=== PATIENT | male | born 1965 | race Caucasian/White ===

== ENCOUNTER 2017-03-25 18:56 | Emergency (ER) | payer OTHER ==
[~2017-03-25] VITALS: Ht 172.7 cm; Wt 84.5 kg
[~2017-03-25 18:56] MED LIST: DICY10CA60 PO; HYDR-3498 PO; ONDA4TAB35 PO; PHEN-538 PO
[2017-03-25 19:15] VITALS: Ht 172.7 cm; Wt 84.5 kg
[2017-03-25] MEDS ORDERED: LORAZEPAM 0.5 MG TAB PO ONE (20:00)
--- NOTE | 2017-03-25 20:02 | ERD ---
ER Documentation Chief Complaint Date/Time DATE: 03/25/17 TIME: 20:00 Chief Complaint Inability to sleep for 3 days and felt Heaviness on chest while in bed HPI 51-year-old man brought in by for complaints of anxiety 3 days, he has had some insomnia and complaints of pressure-like chest pain constant 3 days. Patient states every time he feels severely anxious he develops this type of "chest pressure". The chest pressure is nonexertional nonradiating and has been constant for 3 days. He denies drugs, no shortness of breath, no paresis or paresthesias, no vomiting or diarrhea. Patient denies suicidal homicidal ideation, and states his symptoms occur about twice per year. ROS All systems reviewed and are negative except as per history of present illness. Medications Home Meds Discontinued Reported Medications [none] Unknown Strength No Conflict Check 04/27/16 Discontinued Scripts Ondansetron Hcl* (Zofran* ODT) 4 mg -ODT Tab.disper, 4 MG PO Q8 Y for NAUSEA AND /OR VOMITING, #30 TAB Prov:ALEJANDRO LONGORIA PRIMARY CARE NURSE 04/27/16 Dicyclomine Hcl* (Bentyl*) 10 Mg Capsule, 10 MG PO QID, #20 CAP Prov:ALEJANDRO LONGORIA PRIMARY CARE NURSE 04/27/16 Phenazopyridine Hcl* (Pyridium*) 200 Mg Tab, 200 MG PO TID Y for URINARY PAIN, # 6 TAB Prov:ALEJANDRO LONGORIA PRIMARY CARE NURSE 04/27/16 Hydrocodone Bit-Acetaminophen* ([place]*) 5-325 Mg Tab, 1 TAB PO Q6 Y for PAIN, # 20 TAB Prov:ALEJANDRO LONGORIA PRIMARY CARE NURSE 04/27/16 Allergies Allergies: Coded Allergies: No Known Allergy (Unverified , 11/05/12) PMhx/Soc Anxiety History of Surgery: Yes (LT ABDOMINAL CANCERDOUS TUMOR REMOVED 3 YEARS AGO ) Anesthesia Reaction: No Hx Neurological Disorder: No Hx Respiratory Disorders: No Hx Cardiac Disorders: No Hx Psychiatric Problems: No Hx Miscellaneous Medical Probl: No Hx Alcohol Use: Yes (OCCASIONAL) Hx Substance Use: No Hx Tobacco Use: No FmHx Family History: No diabetes Physical Exam Vitals Vital Signs Date Time Temp Pulse Resp B/P Pulse Ox O2 Delivery O2 Flow Rate FiO2 03/25/17 20:53 61 18 133/75 96 Room Air 03/25/17 19:15 98.2 69 20 135/76 97 Physical Exam GENERAL: Well-developed, anxious HEENT: Moist mucous membranes, pink conjunctiva, no cervical spine tenderness or step-off deformities, no goiter, no jaundice or icterus, extraocular movements intact without pain. No submandibular induration, and no pharyngeal erythema NEURO: Alert and oriented 3, cranial nerves II through XII intact bilaterally, pupils equal round reactive to light, no focal deficits or facial asymmetry, sensation intact distally Strength 5/5 in upper and lower extremities bilaterally CARDIAC: Regular rate and rhythm, no murmurs rubs or gallops LUNGS: Clear bilaterally no wheezing crackles or stridor ABDOMEN: Soft nontender, no guarding, no rigidity, no rebound, no psoas sign no obturator sign. Normoactive bowel sounds SKIN: Warm and dry to touch, no abrasions, contusions, or hematomas, no lacerations, no ecchymosis, no target lesions, and without ulcers EXTREMITIES: No clubbing cyanosis or edema, calves are bilaterally symmetrical, no Homans sign, no popliteal cord sign. Distal pulses equal and bilateral PSYCH: Anxious Results 24 hrs Laboratory Tests Test 03/25/17 19:48 Troponin I < 0.012ng/ml Current Medications Medications (Trade) Dose Ordered Sig/Parker Route PRN Reason Start Time Stop Time Status Last Admin Dose Admin Lorazepam (Ativan) 0.5 mg ONCE ONCE PO 03/25/17 20:00 03/25/17 20:01 DC 03/25/17 19:43 Procedures/MDM Patient was placed on cardiac rehabilitation program director rhythm strip revealed a sinus rhythm at about 70 bpm with upright P and T waves. EKG performed, read by me: 65 bpm, normal sinus rhythm, normal axis, no acute ST segment changes, narrow QRS complex, with good R-wave progression in precordial leads. Troponin was negative. I administered lorazepam 0.5 mg p.o. with good effect. Differential diagnoses considered, included but not limited to acute coronary syndrome, pulmonary embolism, aortic dissection, abdominal aortic aneurysm, sepsis, stroke, meningitis, encephalitis, pneumonia, appendicitis, cholecystitis , bowel obstruction, pyelonephritis, nephrolithiasis, cystitis, as well as metabolic, hematologic, and electrolyte abnormalities. As well as abscess, cellulitis, fractures, and dislocations. Patient feels much better at this time, and vital signs are normal, symptoms have improved. I did give strict instructions to return to the ED if symptoms continue or worsen, patient will otherwise follow-up with primary care physician. Patient understood instructions and agreed to plan. Departure Diagnosis: Primary Impression: Anxiety attack Additional Impression: Chest pain Chest pain type: unspecified Qualified Code: R07.9 - Chest pain, unspecified type Condition: Good Patient Instructions: Anxiety Reaction, Chest Pain, Uncertain Cause JOYCE LANDEROS MD March 25, 2017 20:02
[2017-03-25 20:53] VITALS: BP 133/75; PULSE 61; RESP 18
== END 2017-03-25 20:54 | disposition home or self-care (01) ==
LOC: E/R 18:56
DX: F41.9 Anxiety disorder, unspecified (principal); R07.9 Chest pain, unspecified; Z85.028 Personal history of other malignant neoplasm of stomach
CPT/HCPCS: 84484; 93005

== ENCOUNTER 2017-04-14 01:30 | Emergency (ER) | payer OTHER ==
[~2017-04-14] VITALS: Ht 170.2 cm; Wt 85.5 kg
[2017-04-14 01:39] VITALS: Ht 170.2 cm; Wt 85.5 kg
[2017-04-14] MEDS ORDERED: SOD CHLORIDE 0.9% 1,000 ML IV STA (03:33)
[2017-04-14] MEDS ORDERED: FAMOTIDINE 20 MG TAB PO STA (03:33)
--- NOTE | 2017-04-14 04:08 | RADRPT ---
PROCEDURE: CHEST - 1 VIEW CLINICAL INDICATION: 51-year-old male with chest/abdominal pain. TECHNIQUE: A single frontal AP upright portable view of the chest was performed. The images were reviewed on a PACS workstation. COMPARISON: Chest x-ray October 31, 2012. FINDINGS: The cardiomediastinal silhouette is prominent but without significant interval change. There is no evidence for an infiltrate. There is no evidence for congestive heart failure. There is no evidence for pneumothorax. The osseous structures are intact. IMPRESSION: No evidence for active cardiopulmonary disease. .Vlad Townsend MD, MD Date Time Electronically viewed and signed by .Vlad Townsend MD, on 04/14/2017 04:07 .Josie
--- NOTE | 2017-04-14 04:10 | RADRPT ---
PROCEDURE: ABDOMINAL - 2 VIEWS CLINICAL INDICATION: 51-year-old male with abdominal pain. TECHNIQUE: AP supine views of the abdomen were obtained. The images reviewed on a PACS workstati on. COMPARISON: Chest x-ray obtained concurrently; CT abdomen/pelvis April 27, 2016. FINDINGS: The lung bases are unremarkable. Surgical clips are seen within the left upper quadrant from prior g astric surgery. There is mild retained stool within the ascending colon with gas throughout the res t of the colon without gross bowel obstruction. There are no abnormal calcifications overlying the urinary tracts. The osseous structures are unremarkable. IMPRESSION: 1. Mild retained stool within the proximal colon without obstruction. 2. Prior gastric surgery. .Vlad Townsend MD, MD Date Time Electronically viewed and signed by .Vlad Townsend MD, MD on 04/14/2017 04:09 .Genoveva/
[2017-04-14 04:29] LABS: ADD SCAN DIFF NO
[2017-04-14 04:33] LABS: BASOPHILS % 0.2 % (0.0-2.0); EOSINOPHILS # 0.1 10^3/ul (0.0-0.5); EOSINOPHILS % 0.9 % (0.0-7.0); HEMATOCRIT 37.3 % (42.0-52.0); HEMOGLOBIN 12.6 g/dl (14.0-18.0); LYMPHOCYTES % 25.2 % (15.0-51.0); MEAN CORPUSCULAR HEMOGLOBIN 30.1 pg (29.0-33.0); MEAN CORPUSCULAR HGB CONC 33.8 g/dl (32.0-37.0); MEAN CORPUSCULAR VOLUME 89.2 fl (82.0-101.0); MONOCYTE # 0.5 10^3/ul (0.3-0.9); MONOCYTES % 6.7 % (0.0-11.0); NEUTROPHIL # 5.4 10^3/ul (1.6-7.5); NEUTROPHILS % 66.9 % (39.0-77.0); PLATELET COUNT 209 10^3/UL (140-415); RED BLOOD COUNT 4.18 10^6/ul (4.70-6.10); RED CELL DISTRIBUTION WIDTH 11.9 % (11.5-14.5)
[2017-04-14 04:34] LABS: ADD UMIC NO; URINE BILIRUBIN (Dip) NEGATIVE (NEGATIVE); URINE BLOOD (Dip) NEGATIVE (NEGATIVE); URINE COLOR LT. YELLOW (YELLOW); URINE GLUCOSE (Dip) NEGATIVE (NEGATIVE); URINE KETONES (Dip) NEGATIVE (NEGATIVE); URINE LEUKOCYTE ESTERASE (Dip) NEGATIVE (NEGATIVE); URINE NITRITE (Dip) NEGATIVE (NEGATIVE); URINE TOTAL PROTEIN (Dip) NEGATIVE (NEGATIVE); URINE UROBILINOGEN (Dip) 0.2 E.U./dL (0.1-1.0)
[2017-04-14 04:49] LABS: ALANINE AMINOTRANSFERASE 31 IU/L (13-69); ALBUMIN 4.3 g/dl (3.3-4.9); ALBUMIN/GLOBULIN RATIO 2.04; ALKALINE PHOSPHATASE 64 IU/L (42-121); ANION GAP 11 (8-16); ASPARTATE AMINO TRANSFERASE 25 IU/L (15-46); BILIRUBIN,INDIRECT 0.2 mg/dl (0-1.1); BILIRUBIN,TOTAL 0.2 mg/dl (0.2-1.3); BLOOD UREA NITROGEN 18 mg/dl (7-20); CALCIUM 8.7 mg/dl (8.4-10.2); CARBON DIOXIDE 28 mmol/L (21-31); CHLORIDE 105 mmol/L (97-110); CREATININE 0.63 mg/dl (0.61-1.24); GLUCOSE 96 mg/dl (70-220); POTASSIUM 3.8 mmol/L (3.5-5.1); SODIUM 140 mmol/L (135-144); TOTAL PROTEIN 6.4 g/dl (6.1-8.1)
--- NOTE | 2017-04-14 05:10 | ERD ---
ER Documentation Chief Complaint Date/Time DATE: 04/14/17 TIME: 05:09 Chief Complaint abd pain for a month and n/v 6-7x today, hx of abd tumor HPI 51-year-old male with a history of a gastric tumor removed about 4 years ago presenting with diffuse abdominal pain. He has had the pain for about 1 week. He saw his primary care doctor, Dr. Justice, a few days ago and was prescribed omeprazole. He states the pain is aching, diffuse, intermittent, not improved or worse with anything specifically. It radiates into his chest and he feels like a pressure-like pain when he has abdominal pain. He had 7 episodes of vomiting today with the last episode having blood streaks in it. He denies any associated diarrhea, constipation, hematochezia or melena. Currently he denies any chest pain or shortness of breath. The last time he vomited was early yesterday afternoon. after that he has been tolerating fluids and food by mouth. He denies any fevers or chills. No dysuria. He states the omeprazole is not helping. He has a referral to a flow trader and has a planned endoscopy and colonoscopy. ROS All systems reviewed and are negative except as per history of present illness. Medications Home Meds Active Scripts Magnesium Hydroxide* (Milk Of Magnesia*) 400 Mg/5 Ml Oral.susp, 30 ML PO DAILY Y for CONSTIPATION, #240 ML Prov:CLARKE MEDINA MD 04/14/17 Polyethylene Glycol* (Miralax*) 17 Gm Powd.pack, 17 GM PO DAILY, #30 Prov:CLARKE MEDINA MD 04/14/17 Reported Medications Multivitamins* (Theragran*) 1 Tab Tab, 1 TAB PO DAILY, TAB 04/14/17 Ibuprofen* (Advil*) 200 Mg Capsule, 200 MG PO Q6H Y for PAIN, CAP 04/14/17 Lorazepam* (Lorazepam*) 1 Mg Tablet, 1 MG PO Q12H Y for ANXIETY, #30 TAB 04/14/17 Omeprazole* (Omeprazole*) 20 Mg Capsule.dr, 20 MG PO DAILY, #30 CAP 04/14/17 Allergies Allergies: Coded Allergies: No Known Allergy (Unverified , 04/14/17) PMhx/Soc History of Surgery: Yes (gastric tumor removed 10/2013) Anesthesia Reaction: No Hx Neurological Disorder: No Hx Respiratory Disorders: No Hx Cardiac Disorders: No Hx Psychiatric Problems: No Hx Miscellaneous Medical Probl: Yes (anemia, history of abdominal mass) Hx Alcohol Use: No Hx Substance Use: No Hx Tobacco Use: No Smoking Status: Never smoker FmHx Family History: No diabetes Physical Exam Vitals Vital Signs Date Time Temp Pulse Resp B/P Pulse Ox O2 Delivery O2 Flow Rate FiO2 04/14/17 05:35 98.0 80 20 123/83 97 Room Air 04/14/17 01:39 97.9 61 20 128/62 97 Physical Exam Const: Well-appearing, no distress, nontoxic Head: Atraumatic Eyes: Normal Conjunctiva ENT: Normal External Ears, Nose and Mouth. Neck: Full range of motion..~ No meningismus. Resp: Clear to auscultation bilaterally Cardio: Regular rate and rhythm, no murmurs Abd: Soft, non tender, non distended. No rebound or guarding. No palpable masses. Normal bowel sounds Skin: No petechiae or rashes Back: No midline or flank tenderness Ext: No cyanosis, or edema Neur: Awake and alert Psych: Normal Mood and Affect Result Diagram: 04/14/170 04/14/17 0410 Results 24 hrs Laboratory Tests Test 04/14/17 04:10 White Blood Count 8.010^3/ul Red Blood Count 4.1810^6/ul Hemoglobin 12.6g/dl Hematocrit 37.3% Mean Corpuscular Volume 89.2fl Mean Corpuscular Hemoglobin 30.1pg Mean Corpuscular Hemoglobin Concent 33.8g/dl Red Cell Distribution Width 11.9% Platelet Count 11810^3/UL Mean Platelet Volume 9.0fl Neutrophils % 66.9% Lymphocytes % 25.2% Monocytes % 6.7% Eosinophils % 0.9% Basophils % 0.2% Nucleated Red Blood Cells % 0.0/100WBC Neutrophils # 5.410^3/ul Lymphocytes # 2.010^3/ul Monocytes # 0.510^3/ul Eosinophils # 0.110^3/ul Basophils # 0.010^3/ul Nucleated Red Blood Cells # 0.010^3/ul Urine Color LT. YELLOW Urine Clarity CLEAR Urine pH 7.5 Urine Specific [place] 1.010 Urine Ketones NEGATIVE Urine Nitrite NEGATIVE Urine Bilirubin NEGATIVE Urine Urobilinogen 0.2 E.U./dL Urine Leukocyte Esterase NEGATIVE Urine Hemoglobin NEGATIVE Urine Glucose NEGATIVE% Urine Total Protein NEGATIVE Sodium Level 140mmol/L Potassium Level 3.8mmol/L Chloride Level 105mmol/L Carbon Dioxide Level 28mmol/L Anion Gap 11 Blood Urea Nitrogen 18mg/dl Creatinine 0.63mg/dl Glucose Level 96mg/dl Calcium Level 8.7mg/dl Total Bilirubin 0.2mg/dl Direct Bilirubin 0.00mg/dl Indirect Bilirubin 0.2mg/dl Aspartate Amino Transf (AST/SGOT) 25IU/L Alanine Aminotransferase (ALT/SGPT) 31IU/L Alkaline Phosphatase 64IU/L Troponin I < 0.012ng/ml Total Protein 6.4g/dl Albumin 4.3g/dl Globulin 2.10g/dl Albumin/Globulin Ratio 2.04 Lipase 93U/L Current Medications Medications (Trade) Dose Ordered Sig/Parker Route PRN Reason Start Time Stop Time Status Last Admin Dose Admin Sodium Chloride (NS) 1,000 ml @ 1,000 mls/hr Q1H STAT IV 04/14/17 03:33 04/14/17 04:32 DC 04/14/17 04:19 Famotidine (Pepcid) 20 mg ONCE STAT PO 04/14/17 03:33 04/14/17 03:35 DC 04/14/17 04:19 Procedures/MDM Labs :CBC and CMP were within normal limits, troponin normal, urinalysis normal.. Chest x-ray shows no acute abnormalities Abdominal x-ray: IMPRESSION: 1. Mild retained stool within the proximal colon without obstruction. 2. Prior gastric surgery. .Vlad Townsend MD, MD Date Time Electronically viewed and signed by .Vlad Townsend MD, MD on 04/14/2017 04:09 Patient is presenting with generalized abdominal pain with normal vitals and normal exam. I have a low suspicion for acute surgical abdomen. I do not suspect ischemic bowel, AAA, aortic dissection. There is no evidence of small bowel obstruction on my exam. I do not think a CT is necessary at this time. Patient had a CT about 1 year ago which did not show any significant abnormalities. I discussed my thoughts with the patient and he is agreeable to the plan. He does want some blood work done to make sure there is no significant abnormalities. Labs were done and were all within normal limits. There is no evidence of UTI. His x-rays did show evidence of retained stool in the colon. I discussed this with the patient and advised MiraLAX and milk of magnesia use. I advised follow-up with Dr. Tinsley and return to the ER for any worsening symptoms. Departure Diagnosis: Primary Impression: Abdominal colic Additional Impression: Constipation Constipation type: unspecified constipation type Qualified Code: K59.00 - Constipation, unspecified constipation type Condition: Stable CLARKE MEDINA MD Apr 14, 2017 05:10
[2017-04-14] MEDS ORDERED: MAGN400O4 PO (05:12)
[2017-04-14] MEDS ORDERED: POLY17PO6 PO (05:12)
[2017-04-14 05:35] VITALS: BP 123/83; PULSE 80; RESP 20; TEMP 98
[2017-04-14 05:36] LABS: TROPONIN-I < 0.012 ng/ml (0.00-0.12)
[2017-04-14] MEDS ORDERED: LORA1TAB PO (05:55)
[2017-04-14] MEDS ORDERED: MULTI PO (05:55)
[2017-04-14] MEDS ORDERED: OMEP20CA16 PO (05:55)
[2017-04-14] MEDS ORDERED: IBUP200C11 PO (05:55)
== END 2017-04-14 05:37 | disposition home or self-care (01) ==
LOC: E/R 01:30
DX: R10.84 Generalized abdominal pain (principal); K59.00 Constipation, unspecified
CPT/HCPCS: 71010; 74000; 80053; 81003; 83690; 84484; 85025; 93005; J7030; 36415